=== PATIENT | female | born 1980 | race Caucasian/White ===

== ENCOUNTER 2019-07-04 09:23 | Emergency (ER) | payer MEDICAID ==
[~2019-07-04] VITALS: Ht 167.6 cm; Wt 72.6 kg
[2019-07-04 09:36] VITALS: BP 141/76
--- NOTE | 2019-07-04 09:44 | NUR ---
39/F TO ED WITH C/O THROAT PAIN FOR THE PAST DAY. REPORTS PAIN UPON SWALLOWING AND RATES IT AT A 10/10. ABLE TO SPEAK IN FULL COMPLETE SENTENCES WITHOUT DIFFICULTY. NO SOB. NO DISTRESS NOTED. IN BED FOR MSE.
[2019-07-04] MEDS ORDERED: PENICILLIN G BENZATHINE C-R 1.2 MU/2 ML SYR IM ONE (10:20)
--- NOTE | 2019-07-04 10:49 | NUR ---
PT RATES PAIN AT 8/10. OKAY TO D/C WITH RX FOR PAIN MEDICATION. PT AGREES.
--- NOTE | 2019-07-04 10:50 | NUR ---
Patient discharged with v/s stable. Written and verbal after care instructions given and explained. Patient alert, oriented and verbalized understanding of instructions. Ambulatory with steady gait. All questions addressed prior to discharge. ID band removed. Patient advised to follow up with PMD. Rx of MOTRIN, BEEPEN VK, LIDOCAINE VISCOUS given. Patient educated on indication of medication including possible reaction and side effects. Opportunity to ask questions provided and answered.
[2019-07-04 10:51] VITALS: BP 137/81
== END 2019-07-04 10:50 | disposition home or self-care (01) ==
LOC: MED 09:23
DX: J03.90 Acute tonsillitis, unspecified (principal)
CPT/HCPCS: 96372; 99283; J0558

== ENCOUNTER 2021-07-12 19:59 | Emergency (ER) | payer SELFPAY ==
--- NOTE | 2021-07-12 20:56 | NUR ---
called for patient-- no answer at this time
--- NOTE | 2021-07-12 21:42 | NUR ---
called patient through phone no answer
== END 2021-07-12 20:56 | disposition left against medical advice (07) ==
LOC: MED 19:59
DX: R03.0 Elevated blood-pressure reading, without diagnosis of hypertension (principal); Z53.21 Procedure and treatment not carried out due to patient leaving prior to being seen by health care provider

== ENCOUNTER 2021-08-08 21:32 | Emergency (ER) | payer SELFPAY ==
[~2021-08-08] VITALS: Ht 167.6 cm; Wt 127.0 kg
[2021-08-08 21:35] VITALS: BP 157/87
--- NOTE | 2021-08-08 21:35 | NUR ---
to bed ambulatory
--- NOTE | 2021-08-08 21:50 | NUR ---
41 YO/F BIB SELF W C/O LOWER ABDOMINAL PAIN 01/24 X2 WEEKS NON RAD PRESSURE LIKE INTERMITTENT, + BURNING URINATION X2 DAYS. PT DENIES ANY CHEST PAIN , SOB, FEVERS, CHILLS, N/V/D. PT DENIES KAMI ANY MEDICATION FOR PAIN. PT LAYING IN BED LOCKED IN LOWEST POSITION. BREATING EVEN AND UNLABORED. NAD NOTED, WILL CONTINUE TO MONITOR. PMH:DENIES ALLERGIES:DENIES
[2021-08-08 22:01] LABS: BASOPHILS # (AUTO) 0.1 K/uL (0.00-0.22); BASOPHILS % (AUTO) 0.5 % (0.0-2.0); EOSINOPHILS # (AUTO) 0.1 K/uL (0-0.4); EOSINOPHILS % (AUTO) 0.8 % (0.0-4.0); HEMATOCRIT 38.8 % (36-48); HEMOGLOBIN 13.3 g/dL (12.0-16.0); MEAN CORPUSCULAR HEMOGLOBIN 29 pg (27-31); MEAN CORPUSCULAR HGB CONC 34 g/dL (33-37); MEAN CORPUSCULAR VOLUME 83.9 fL (80-94); MONOCYTES # (AUTO) 0.6 K/uL (0.8-1.0); MONOCYTES % (AUTO) 6.4 % (1.7-9.3); NEUTROPHILS # (AUTO) 5.3 K/uL (1.8-7.7); NEUTROPHILS % (AUTO) 52.3 % (42.2-75.2); PLATELET COUNT (AUTO) 318 K/uL (140-450); RED BLOOD CELL COUNT(AUTO) 4.63 MIL/uL (4.20-5.40); RED CELL DISTRIBUTION WIDTH 13.4 % (11.6-13.7); WHITE BLOOD COUNT (AUTO) 10.1 K/uL (4.8-10.8)
[2021-08-08 22:01] LABS: APPEARANCE,URINE CLOUDY (CLEAR); BILIRUBIN,URINE NEGATIVE (NEGATIVE); BLOOD, URINE TRACE-I (NEGATIVE); LEUKOCYTE ESTERASE ,URINE 3+ (NEGATIVE); NITRITE, URINE NEGATIVE (NEGATIVE); UGLUCOSE NEGATIVE (NEGATIVE)
[2021-08-08 22:03] LABS: COLOR,URINE STRAW (YELLOW)
[2021-08-08] MEDS ORDERED: PHENAZOPYRIDINE 100 MG TAB PO ONE (22:10)
[2021-08-08 22:18] LABS: ALBUMIN 3.8 g/dL (3.4-5.0); ANION GAP 12.8 (8-16); CARBON DIOXIDE 27.5 mmol/L (21-32); CREATININE 0.7 mg/dL (0.6-1.3); POTASSIUM 3.3 mmol/L (3.5-5.1); TOTAL BILIRUBIN 0.2 mg/dL (0.0-1.0)
[2021-08-08 22:25] LABS: RBC,URINE 0-5 /HPF (0-5)
[2021-08-08] MEDS ORDERED: CEPH250C16 PO (22:42)
[2021-08-08] MEDS ORDERED: PYR100 PO (22:42)
[2021-08-08] MEDS ORDERED: METF-1243 PO (22:42)
[2021-08-08] MEDS ORDERED: cephALEXin 500 MG CAP PO ONE (22:50)
[2021-08-08 23:12] VITALS: BP 157/87
--- NOTE | 2021-08-08 23:12 | NUR ---
Patient discharged with v/s stable. Written and verbal after care instructions given and explained. Patient alert, oriented and verbalized understanding of instructions. Ambulatory with steady gait. All questions addressed prior to discharge. ID band removed. Patient advised to follow up with PMD. Rx of KEFLEX, METFORMIN, PYRIDIUM given. Patient educated on indication of medication including possible reaction and side effects. Opportunity to ask questions provided and answered.
== END 2021-08-08 23:12 | disposition home or self-care (01) ==
LOC: MED 21:32
DX: N39.0 Urinary tract infection, site not specified (principal); E11.9 Type 2 diabetes mellitus without complications; Z79.84 Long term (current) use of oral hypoglycemic drugs; Z79.899 Other long term (current) drug therapy
CPT/HCPCS: 36415; 80053; 81001; 81025; 83690; 85025; 87086; 99283